=== PATIENT | female | born 2000 | race Caucasian/White ===

== ENCOUNTER 2023-06-02 09:45 | Emergency (ER) | payer BC, SELFPAY ==
--- NOTE | ~2023-06-02 | XR_ITS ---
EXAMINATION: XR LEFT ANKLE XR SACRUM/COCCYX CLINICAL INFORMATION: Pain following injury. COMPARISON: None. TECHNIQUE: AP, lateral, and mortise views of the left ankle were obtained. AP and lateral views of the sacrum and coccyx were obtained. FINDINGS: Left ankle: Alignment is anatomic. Focal cortical disruption at the tip of the lateral malleolus. Ankle mortise is maintained. The talar dome is intact. Lateral ankle soft tissue swelling. Moderate ankle joint effusion. Sacrum/coccyx: Alignment is anatomic. Sacroiliac joints and pubic symphysis are intact. The sacrum is partially obscured by overlying bowel contents. Hip joints appear symmetric. No displaced fracture or dislocation. XR/XR sacrum coccyx min 2V IMPRESSION: Possible nondisplaced fracture of the lateral malleolus.
--- NOTE | ~2023-06-02 | CT_ITS ---
EXAMINATION: CT HEAD W/O IV CONTRAST CT CERVICAL SPINE W/O IV CONTRAST CLINICAL INFORMATION: History of fall, head strike. COMPARISON: None TECHNIQUE: Head - Contiguous axial imaging of the head was performed from the skull base to the vertex without the administration of intravenous contrast, and axial images are reconstructed at 2 mm and 5 mm slice thickness. Cervical spine - A volumetric, helical CT acquisition of the cervical spine was obtained without contrast; in addition to the standard set of axial images, multiplanar reformatted images were provided in the coronal and sagittal imaging planes. This CT examination was performed using dose optimization techniques as appropriate, variously including the following: *Automated exposure control *Adjustment of mA and/or kV according to patient size (this includes techniques or standardized protocols for targeted exams where dose is matched to indication/reason for exam; i.e. extremities or head) *Use of iterative reconstruction technique DLP: 845 mGy-cm (total) FINDINGS: HEAD: No acute intracranial findings. Calhoun to white matter differentiation is preserved. No evidence of intracranial hemorrhage, major vascular territory infarction, focal mass effect or midline shift. The ventricles have normal size and configuration. No hydrocephalus or extra-axial fluid collections. The calvarium is intact. The paranasal sinuses are well aerated. Minimal mucus is seen at the floor of the left maxillary sinus. The mastoid air cells and middle ear cavities are clear. The temporomandibular joints are intact. The orbits and globes are unremarkable. CERVICAL SPINE: The cervical spine has normal curvature. The craniocervical junction is normal. The occipital condyles, dens and atlantodental articulation are intact. The vertebral body heights and alignment are maintained. No fractures in the anterior or posterior elements. No prevertebral soft tissue edema. The disc spaces are preserved. The facet joints and uncovertebral joints are unremarkable. No stenosis of the central spinal canal or neural foramina. No hematoma in the visualized neck. Thyroid gland is normal. The examined lung apices are clear. CT/CT cervical spine wo IV con IMPRESSION: * No acute intracranial pathology. * No fracture or malalignment in the cervical spine.
--- NOTE | ~2023-06-02 | XR_ITS ---
EXAMINATION: XR LEFT ANKLE XR SACRUM/COCCYX CLINICAL INFORMATION: Pain following injury. COMPARISON: None. TECHNIQUE: AP, lateral, and mortise views of the left ankle were obtained. AP and lateral views of the sacrum and coccyx were obtained. FINDINGS: Left ankle: Alignment is anatomic. Focal cortical disruption at the tip of the lateral malleolus. Ankle mortise is maintained. The talar dome is intact. Lateral ankle soft tissue swelling. Moderate ankle joint effusion. Sacrum/coccyx: Alignment is anatomic. Sacroiliac joints and pubic symphysis are intact. The sacrum is partially obscured by overlying bowel contents. Hip joints appear symmetric. No displaced fracture or dislocation. XR/XR ankle LT min 3V IMPRESSION: Possible nondisplaced fracture of the lateral malleolus.
--- NOTE | 2023-06-02 09:51 | ED.GENADULT ---
HPI - General Adult General Chief complaint: Fall Stated complaint: FALL FROM HORSE,+COLLAR Time Seen by Provider: 06/02/23 09:50 Source: patient and EMS Mode of arrival: EMS Limitations: no limitations History of Present Illness HPI narrative: Patient is a 22 year old assigned female at with no reported medical history presenting to the emergency department today with left ankle and tailbone pain. Patient states that she was riding a horse when she was thrown forward off of it. Patient states that her left ankle and tail bone hurt. Patient denies any loss of consciousness with the incident. Patient denies any dizziness, lightheadedness, abdominal pain, nausea, vomiting, fever, chills, blurry vision, double vision, loss of vision, chest pain, difficulty breathing, shortness of breath, back pain, night sweats, pain with urination, increased urinary frequency, increased urinary urgency, blood in her urine or stool, syncope or a near syncopal episode, bowel incontinence, bladder incontinence, bowel retention, bladder retention, or any other complaints at this time. Onset (ago): minute(s) Location: left and lower extremity Severity: mild Severity scale (1-10): 3 Relieving factors: none Exacerbating factors: none Associated symptoms: denies other symptoms Treatments prior to arrival: none Related Data Allergies Allergy/AdvReac Type Severity Reaction Status Date / Time No Known Allergies Allergy Verified 06/02/23 09:51 Review of Systems Constitutional: Constitutional: Reports no additional constitutional complaints, Denies chills, Denies fever(s) and Denies night sweats Eyes: Eyes: Reports no additional eye complaints, Denies blurry vision, Denies change in vision, Denies diplopia, Denies eye discharge, Denies loss of vision and Denies eye pain ENT: Denies dizziness Cardiovascular: Cardiovascular: Reports no additional cardiovascular complaints, Denies chest pain, Denies lightheadedness, Denies Loss of Consciousness and Denies dyspnea Respiratory: Respiratory: Reports no additional respiratory complaints and Denies dyspnea Gastrointestinal: Gastrointestinal: Reports no additional gastrointestinal complaints, Denies abdominal pain, Denies melena, Denies hematochezia, Denies change in bowel habits and Denies change in stool character Genitourinary: Genitourinary: Denies hematuria, Denies urinary frequency, Denies dysuria, Denies urinary incontinence, Denies urinary hesitancy and Denies urinary urgency Musculoskeletal: Musculoskeletal: Reports no additional musculoskeletal complaints, Reports back pain, Denies numbness and Denies tingling Comments: left ankle pain Neurologic: Denies dizziness, Denies loss of vision, Denies numbness and Denies tingling Psychiatric: Psychiatric: Reports no additional psychiatric complaints Endocrine: Endocrine: Reports no additional endocrine complaints Hematologic/Lymphatic: Hematologic/Lymphatic: Reports no additional hematologic/lymphatic complaints Allergic/Immunologic: Allergic/Immunologic: Reports no additional allergic/immunologic complaints [facility] Past Medical History Attestation statement: The following information was validated with the patient. Source: old records reviewed and nursing notes reviewed Social History Social History Smoked in Last 30 Days: No Use of substances other than those prescribed or required for medical reasons: No Advance Directives: No Advance Directives Information Provided: No Physical Exam ED Vital Signs: Vital Signs - 24 hr 06/02/23 09:53 06/02/23 10:00 06/02/23 13:52 Temperature 97.8 F 97.8 F 98.6 F Pulse Rate 82 78 78 Respiratory Rate 19 19 18 Blood Pressure 112/70 112/70 116/60 Pulse Oximetry 99 99 98 Oxygen Delivery Method Room Air Room Air Room Air BMI result Body Mass Index 20.8 Const General: cooperative, no acute distress, alert and awake Nutritional Appearance: well nourished Orientation/consciousness: patient oriented x3 Limitations: no limitations HENMT Head: Yes normal to inspection and Yes atraumatic Ears: hearing grossly normal bilaterally and external ears normal General nose exam: Normal external nose present, no nasal discharge noted and no epistaxis Face and sinus: Yes normal facial exam, No abrasion and No laceration Mouth: Normal oral and palatal mucosa present, no drooling and no muffled voice Eyes General: appearance normal, both eyes and all related structures Periorbital: periorbital findings normal Eyelids: Yes eyelids normal Conjunctivae: conjunctivae normal Pupils: Equal, round and reactive pupils present EOM: EOMs intact bilaterally Neck Neck: Yes normal visual inspection, Yes full ROM and Yes no lymphadenopathy Chest Chest palpation & inspection: normal inspection of the chest Resp Effort & Inspection: normal respiratory effort and able to speak in complete sentences GI Inspection: Yes normal to inspection Neuro General: patient oriented x3 and moves all extremities Cranial nerves: Yes Equal, round and reactive pupils present Cognition (Neuro): normal cognition Motor exam (neuro): 5/5 motor strength present throughout Sensory Exam: Normal double simultaneous stimulation for sensation Coordination: [id number] test normal Extrem General: Yes normal to inspection, Yes full ROM and Yes capillary refill normal Psych Appearance: grossly normal Mental Status: mental status grossly normal Affect: normal affect Attitude: cooperative Thought process: Normal thought process present Thought content: Normal thought content present Insight: Good insight present (Psych) Procedures Orthopedic Splinting/Casting Injury #1: Side: left Lower Extremity Injury Location: ankle Lower Extremity Immobilizer: boot orthosis Other Orthopedic Equipment: crutches Medical Decision Making Medical Decision Making MDM Narrative: Patient is a 22 year old assigned female at with no reported medical history presenting to the emergency department today with left ankle pain after falling off a horse. Patient's physical exam was unremarkable. Patient's CT head and c-spine were unremarkable. Patient's left ankle x-ray showed an acute fracture. Patient's tailbone x-ray was negative. I showed no acute process. I explained my physical exam findings as well as all test results to the patient. I answered all questions asked by the patient. Patient's left ankle was placed in a walking boot without incident. Patient's PMS was intact prior to and after boot placement. Patient was given crutches and crutch instructions. I stressed the importance of the patient taking her medication as prescribed. I stressed the importance of the patient following up with her primary care provider and an orthopedic provider. I stressed the importance of the patient returning to the emergency department immediately if her symptoms were to worsen or if she were to develop any dizziness, shortness of breath, difficulty breathing, chest pain, blurry vision, loss of vision, nausea, vomiting, abdominal pain, fever, chills, back pain, or any other complaints. Patient verbalized agreement and understanding with this treatment plan and discharge. Differential Diagnosis Differential Diagnoses: The differential diagnosis associated with the presentation includes Fall from horse Left ankle fracture Tailbone contusion Admission/Observation Consideration of admission/observation: Escalation of care including admission/observation considered Patient would have been admitted to the hospital had her work up had any findings where hospital admission was appropriate and her clinical presentation warranted hospital admission. Independent Interpretation I performed an independent interpretation of an: Plain X-Ray and CT Scan Interpretation: My interpretation is in agreement with the radiologist's impression of these imaging studies. EXAMINATION: CT HEAD W/O IV CONTRAST CT CERVICAL SPINE W/O IV CONTRAST CLINICAL INFORMATION: History of fall, head strike. COMPARISON: None TECHNIQUE: Head - Contiguous axial imaging of the head was performed from the skull base to the vertex without the administration of intravenous contrast, and axial images are reconstructed at 2 mm and 5 mm slice thickness. Cervical spine - A volumetric, helical CT acquisition of the cervical spine was obtained without contrast; in addition to the standard set of axial images, multiplanar reformatted images were provided in the coronal and sagittal imaging planes. This CT examination was performed using dose optimization techniques as appropriate, variously including the following: *Automated exposure control *Adjustment of mA and/or kV according to patient size (this includes techniques or standardized protocols for targeted exams where dose is matched to indication/reason for exam; i.e. extremities or head) *Use of iterative reconstruction technique DLP: 845 mGy-cm (total) FINDINGS: HEAD: No acute intracranial findings. Calhoun to white matter differentiation is preserved. No evidence of intracranial hemorrhage, major vascular territory infarction, focal mass effect or midline shift. The ventricles have normal size and configuration. No hydrocephalus or extra-axial fluid collections. The calvarium is intact. The paranasal sinuses are well aerated. Minimal mucus is seen at the floor of the left maxillary sinus. The mastoid air cells and middle ear cavities are clear. The temporomandibular joints are intact. The orbits and globes are unremarkable. CERVICAL SPINE: The cervical spine has normal curvature. The craniocervical junction is normal. The occipital condyles, dens and atlantodental articulation are intact. The vertebral body heights and alignment are maintained. No fractures in the anterior or posterior elements. No prevertebral soft tissue edema. The disc spaces are preserved. The facet joints and uncovertebral joints are unremarkable. No stenosis of the central spinal canal or neural foramina. No hematoma in the visualized neck. Thyroid gland is normal. The examined lung apices are clear. CT/CT cervical spine wo IV con IMPRESSION: * No acute intracranial pathology. * No fracture or malalignment in the cervical spine. Dictated By: David Valdez MD Signed By: Electronically signed by David Valdez MD 06/02/23 1147 EXAMINATION: XR LEFT ANKLE XR SACRUM/COCCYX CLINICAL INFORMATION: Pain following injury. COMPARISON: None. TECHNIQUE: AP, lateral, and mortise views of the left ankle were obtained. AP and lateral views of the sacrum and coccyx were obtained. FINDINGS: Left ankle: Alignment is anatomic. Focal cortical disruption at the tip of the lateral malleolus. Ankle mortise is maintained. The talar dome is intact. Lateral ankle soft tissue swelling. Moderate ankle joint effusion. Sacrum/coccyx: Alignment is anatomic. Sacroiliac joints and pubic symphysis are intact. The sacrum is partially obscured by overlying bowel contents. Hip joints appear symmetric. No displaced fracture or dislocation. XR/XR ankle LT min 3V IMPRESSION: Possible nondisplaced fracture of the lateral malleolus. Dictated By: Renate Draper MD Signed By: Electronically signed by Renate Draper MD 06/02/23 1311 Radiology Impression Discussion of test interpretation with radiology: I have reviewed the radiologist's reading. Independent Historian Clinical information obtained from an independent historian. History obtained from or confirmed by: EMS (EMS provided additional history and confirmed the history provided by the patient.) Discharge Plan Discharge Clinical Impression: Ankle fracture Patient Disposition: Home, Self-Care Instructions: Ankle Fracture (DC) Additional Instructions: Follow up with your primary care provider and an orthopedic provider. Return to the emergency department immediately if your symptoms worsen or if you develop any dizziness, shortness of breath, difficulty breathing, chest pain, blurry vision, loss of vision, nausea, vomiting, abdominal pain, fever, chills, back pain, or any other complaints. Referrals: [facility] [place] [facility] [Provider Group] (Call to establish and follow up with a primary care provider. If you already have a primary care provider, please follow up with them.) [facility] [place] [facility]] (Call to establish and follow up with a primary care provider. If you already have a primary care provider, please follow up with them.) [facility] [place] [facility] [Provider Group] (Call to establish and follow up with a primary care provider. If you already have a primary care provider, please follow up with them.) [facility] [place] [facility] [Provider Group] (Call to establish and follow up with an orthopedic provider.) Interventions: ED Discharge Assessment Last Done: 06/02/23 14:09 Discharge Date/Time: 06/02/23 14:12 Print Language: Kinyarwanda
[2023-06-02 09:53] VITALS: BP 112/70; BP 128/82; PULSE 82; PULSE 88; RESP 19; TEMP 36.6; O2SAT 98; O2SAT 99; BMI 20.8
[2023-06-02 10:00] VITALS: BP 112/70; PULSE 78; RESP 19; TEMP 36.6; O2SAT 99
--- NOTE | 2023-06-02 10:02 | PC.NURSE ---
pt presents to ED via EMS for a fall off of her horse at [facility], thrown off , witnessed by bystanders who say she fell onto her head and neck, no LOC. pt is alert and oriented, breathing even and unlabored, skin warm and dry. pt denies head or neck pain, no LOC. pt denies dizziness, blurred vision or weakness. pt reports left ankle pain described as sharp and tailbone pain described as dull. Overall pain 5/10. Pt is in c-collar placed by EMS. pt has equal strength, CSMx4 intact. No obvious deformities to left ankle, no bruising. No obvious bleeding, swelling or bruising to head or face.
--- OUTSIDE RECORDS SUMMARY | 2023-06-02 10:41 | XMS_ITS | Continuity of Care Document ---
Author Name Unknown Organization [facility] Address [address] [place] [address]- Care Team Providers Care Tag Clerk Name Role Phone UNKNOWN, DOCTOR Primary Care Physician Unavailab le Encounter [facility] [id number] Date(s): 11/03/20 - 11/05/20 [facility] [address] [place] [address]- [facility] Encounter Diagnosis Other specified disorders of nose and nasal sinuses(Final) - 11/03/20 Epistaxis(Final) - 11/03/20 Localized swelling, mass and lump, head(Final) - 11/03/20 Other specified disorders of nose and nasal sinuses(Final) - 11/03/20 Epistaxis(Final) - 11/03/20 Hemangioma of other sites(Final) - 11/03/20 Contact with and (suspected) exposure to COVID19(Final) - 11/03/20 Discharge Disposition: HR Attending Physician: HARVEY GORMAN MD Admitting Physician: HARVEY GORMAN MD Allergies, Adverse Reactions, Alerts No Known Allergies Functional Status 11/03/20 Ambulates Independently Medications No Known Medications Mental Status 11/03/20 Level of Consciousness Awake, Alert Orientation Oriented X3 11/03/20 Affect Appropriate Problem List Condition Effective Dates Status Health Status Inform ant Difficulty breathing(Confirmed) Active Mass(Confirmed) 1 Active 1nasal Procedures Procedure Date Related Diagnosis Body Site Status EXCISION LESION SCALP/FACE 1 11/03/20 Completed Toe 2 2013 Completed Hand 3 2003 Completed 1auto-populated from documented surgical case 2lt great toe ingrown toenail 3rt severed tendon Results Laboratory List Name Date U Qual ED ( Qual Urin e) 11/03/20 [id number] ([place]) 10/30/20 Most recent to oldest [Reference Range]: 1 [id number] ([place]) [Negative] Negativ e (10/30/20 1:27 PM) Urine Interp Negative NOTE: This is a screening test only and may give rise to false negative results at levels below 20 mIU/ML. *Unknown* (11/03/20 8:30 AM) Urine Screen Negative (11/03/20 8:30 AM) Vital Signs Most recent to oldest [Reference Range]: 1 2 3 Temperature Oral [96.4-99.1 DegF] 97.9 DegF (11/03/20 12:22 PM) 98.0 DegF (11/03/20 8:25 AM) Temperature Axillary [95.4-98.1 DegF] 97.8 DegF (11/03/20 11:01 AM) Heart Rate [60-100 bpm] 56 bpm *L* (11/03/20 12:22 PM) 69 bpm (11/03/20 12:00 PM) 78 bpm (11/03/20 11:45 AM) HR/Rhythm Normal sinus rhythm (11/03/20 12:00 PM) Normal sinus rhythm (11/03/20 11:45 AM) Normal sinus rhythm (11/03/20 11:30 AM) Resp Rate Spontaneous [14-20 br/min] 18 br/min (11/03/20 12:22 PM) 18 br/min (11/03/20 12:00 PM) 15 br/min (11/03/20 11:45 AM) Blood Pressure [90-140/60-90 mmHg] 95/62mmHg (11/03/20 12:22 PM) 107/71mmHg (11/03/20 12:00 PM) 109/74mmHg (11/03/20 11:45 AM) NIBP Site Right arm (11/03/20 12:22 PM) Right arm (11/03/20 12:00 PM) Right arm (11/03/20 11:45 AM) Body Mass Index 17.9211 kg/m2 (11/03/20 8:22 AM) 17.4681 kg/m2 (10/31/20 3:43 PM) BMI Percentile 5.71 1 (11/03/20 8:22 AM) 3.22 2 (10/31/20 3:43 PM) 1Result Comment: ^~:!Percentile Source -CDC 2Result Comment: ^~:!Percentile Source -[facility] Social History Social History Type Response Smoking Status Never (less than 100 in lifetime); Smokeless tobacco use: new entered on: 10/31/20 Sex Hospital Discharge Instructions Patient Education 11/03/2020 12:19:00 Incision Care, Adult Incision Care, Adult An incision is a surgical cut that is made through your skin. Most incisions are closed after surgery. Your incision may be closed with stitches (sutures), meg, skin glue, or adhesive strips. Youmay need to return to your health care provider to have sutures or meg removed. This may occur several days to several weeks after your surgery. The incision needs to be cared for properly to prevent infection. How to care for your incision Incision care ??? Follow instructions from your health care provider about how to take care of your incision. Make sure you: ??? Wash your hands with soap and water before you change the bandage (dressing). If soap and waterare not available, use hand diagnostic imaging manager. ??? Change your dressing as told by your health care provider. ??? Leave sutures, skin glue, or adhesive strips in place. These skin closures may need to stay in place for 2 weeks or longer. If adhesive strip edges start to loosen and curl up, you may trim the loose edges. Do not remove adhesive strips completely unless your health care provider tells you to do that. ??? Check your incision area every day for signs of infection. Check for: ??? More redness, swelling, or pain. ??? More fluid or blood. ??? Warmth. ??? Pus or a bad smell. ??? Ask your health care provider how to clean the incision. This may include: ??? Using mild soap and water. ??? Using a clean towel to pat the incision dry after cleaning it. ??? Applying a cream or ointment. Do this only as told by your health care provider. ??? Covering the incision with a clean dressing. ??? Ask your health care provider when you can leave the incision uncovered. ??? Do not take baths, swim, or use a hot tub until your health care provider approves. Ask your health care provider if you can take showers. You may only be allowed to take sponge baths for bathing. Medicines ??? If you were prescribed an antibiotic medicine, cream, or ointment, take or apply the antibioticas told by your health care provider. Do not stop taking or applying the antibiotic even if your condition improves. ??? Take nqrx-wym-dawqoel and prescription medicines only as told by your health care provider. General instructions ??? Limit movement around your incision to improve healing. ??? Avoid straining, lifting, or exercise for the first month, or for as long as told by your health care provider. ??? Follow instructions from your health care provider about returning to your normal activities. ??? Ask your health care provider what activities are safe. ??? Protect your incision from the sun when you are outside for the first 6 months, or for as long as told by your health care provider. Apply sunscreen around the scar or cover it up. ??? Keep all follow-up visits as told by your health care provider. This is important. Contact a health care provider if: ??? Your have more redness, swelling, or pain around the incision. ??? You have more fluid or blood coming from the incision. ??? Your incision feels warm to the touch. ??? You have pus or a bad smell coming from the incision. ??? You have a fever or shaking chills. ??? You are nauseous or you vomit. ??? You are dizzy. ??? Your sutures or meg come undone. Get help right away if: ??? You have a red streak coming from your incision. ??? Your incision bleeds through the dressing and the bleeding does not stop with gentle pressure. ??? The edges of your incision open up and separate. ??? You have severe pain. ??? You have a rash. ??? You are confused. ??? You faint. ??? You have trouble breathing and a fast heartbeat. This information is not intended to replace advice given to you by your health care provider. Make sure you discuss any questions you have with your health care provider. Document Released: 10/22/2005 Document Revised: 04/06/2019 Document Reviewed: 10/20/2016 Elsevier Patient Education ?? 2020 [email or web address] 11/03/2020 12:18:29 General Anesthesia, Adult, Care After General Anesthesia, Adult, Care After This sheet gives you information about how to care for yourself after your procedure. Your health care provider may also give you more specific instructions. If you have problems or questions, contact your health care provider. What can I expect after the procedure? After the procedure, the following side effects are common: ??? Pain or discomfort at the IV site. ??? Nausea. ??? Vomiting. ??? Sore throat. ??? Trouble concentrating. ??? Feeling cold or chills. ??? Weak or tired. ??? Sleepiness and fatigue. ??? Soreness and body aches. These side effects can affect parts of the body that were not involvedin surgery. Follow these instructions at home: For at least 24 hours after the procedure: ??? Have a responsible adult stay with you. It is important to have someone help care for you untilyou are awake and alert. ??? Rest as needed. ??? Do not: ??? Participate in activities in which you could fall or become injured. ??? Drive. ??? Use heavy machinery. ??? Drink alcohol. ??? Take sleeping pills or medicines that cause drowsiness. ??? Make important decisions or sign legal documents. ??? Take care of children on your own. Eating and drinking ??? Follow any instructions from your health care provider about eating or drinking restrictions. ??? When you feel hungry, start by eating small amounts of foods that are soft and easy to digest (bland), such as toast. Gradually return to your regular diet. ??? Drink enough fluid to keep your urine pale yellow. ??? If you vomit, rehydrate by drinking water, juice, or clear broth. General instructions ??? If you have sleep apnea, surgery and certain medicines can increase your risk for breathing problems. Follow instructions from your health care provider about wearing your sleep device: ??? Anytime you are sleeping, including during daytime naps. ??? While taking prescription pain medicines, sleeping medicines, or medicines that make you drowsy. ??? Return to your normal activities as told by your health care provider. Ask your health care provider what activities are safe for you. ??? Take uoor-lek-amgnldm and prescription medicines only as told by your health care provider. ??? If you smoke, do not smoke without supervision. ??? Keep all follow-up visits as told by your health care provider. This is important. Contact a health care provider if: ??? You have nausea or vomiting that does not get better with medicine. ??? You cannot eat or drink without vomiting. ??? You have pain that does not get better with medicine. ??? You are unable to pass urine. ??? You develop a skin rash. ??? You have a fever. ??? You have redness around your IV site that gets worse. Get help right away if: ??? You have difficulty breathing. ??? You have chest pain. ??? You have blood in your urine or stool, or you vomit blood. Summary ??? After the procedure, it is common to have a sore throat or nausea. It is also common to feel tired. ??? Have a responsible adult stay with you for the first 24 hours after general anesthesia. It is important to have someone help care for you until you are awake and alert. ??? When you feel hungry, start by eating small amounts of foods that are soft and easy to digest (bland), such as toast. Gradually return to your regular diet. ??? Drink enough fluid to keep your urine pale yellow. ??? Return to your normal activities as told by your health care provider. Ask your health care provider what activities are safe for you. This information is not intended to replace advice given to you by your health care provider. Make sure you discuss any questions you have with your health care provider. Document Released: 2001 Document Revised: 04/07/2018 Document Reviewed: 11/18/2017 [email or web address] Patient Education ?? 2020 [employer]. 11/03/2020 12:18:10 Surgical Site Infections FAQs(CUSTOM) Surgical Site Infections FAQs What is a Surgical Site Infection (SSI)? A surgical site infection is an infection that occurs after surgery in the part of the body where the surgery took place. Most patients who have surgery do not develop an infection. However, infections develop in about 1 to 3 out of every 100 patients who have surgery. Some of the common symptoms of a surgical site infection are: ??? Redness and pain around the area where you had surgery ??? Drainage of cloudy fluid from your surgical wound ??? Fever Can SSIs be treated? Yes. Most surgical site infections can be treated with antibiotics. The antibiotic given to youdepends on the bacteria (germs) causing the infections. Sometimes patients with SSIs also need another surgery to treat the infection. What are some of the things that hospitals are doing to prevent SSIs? To prevent SSIs, doctors, nurses, and other healthcare providers: o Clean their hands and arms up to their elbows with an antiseptic agent just before the surgery. o Clean their hands with soap and water or an alcohol-based hand rub before and after caring for each patient. o May remove some of your hair immediately before your surgery using electric clippers if the hair is in the same area where the procedure will occur. They should not shave you with a razor. o Wear special hair covers, masks, gowns, and gloves during surgery to keep the surgery area clean. o Give you antibiotics before your surgery starts. In most cases, you should get antibiotics minutes before the surgery starts and the antibiotics should be stopped within 24 hours after surgery. o Clean the skin at the site of your surgery with a special soap that kills germs. What can I do to help prevent SSIs? Before your surgery: o Tell your doctor about other medical problems you may have. Health problems such as allergies, diabetes, and obesity could affect your surgery and your treatment. o Quit smoking. Patients who smoke get more infections. Talk to your doctor about how you can quit before your surgery. o Do not shave near where you will have surgery. Shaving with a razor can irritate your skin and make it easier to develop an infection. ??? At the time of your surgery: o Speak up if someone tries to shave you with a razor before surgery. Ask why you need to be shavedand talk with your surgeon if you have any concerns. o Ask if you will get antibiotics before surgery. ??? After your surgery: o Make sure that your healthcare providers clean their hands before examining you, either with soapand water or an alcohol-based hand rub. o If you do not see your providers clean their hands, please ask them to do so. o Family and friends who visit you should not touch the surgical wound or dressings. o Family and friends should clean their hands with soap and water or an alcohol- based hand rub before and after visiting you. If you do not see them clean their hands, ask them to clean their hands. What do I need to do when I go home from the hospital? Before you go home, your doctor or nurse should explain everything you need to know about taking care of your wound. Make sure you understand how to care for your wound before you leave the hospital. ??? Always clean your hands before and after caring for your wound. ??? Before you go home, make sure you know who to contact if you have questions or problems after you get home. ??? If you have any symptoms of an infection, such as redness and pain at the surgery site, drainage, or fever, call your doctor immediately. If you have additional questions, please ask your doctor or nurse. Developed and co-sponsored by The Society for Healthcare Epidemiology of [place] (ROOT); InfectiousDiseases Society of [place] (IDSA); [facility]; Association for Professionals inInfection Control and Epidemiology (APIC); Centers for Disease Control and Prevention (CDC); and The Joint Commission. Document Released: 04/09/2014 Document Reviewed: 04/09/2014 ExitCare?? Patient Information ??2015 [employer]. This information is not intended to replace advice given to you by your health care provider. Make sure you discuss any questions you have with your health care provider.
--- OUTSIDE RECORDS SUMMARY | 2023-06-02 10:41 | XMS_ITS | Continuity of Care Document ---
Author Name Unknown Organization [facility] Address [address] [place] [address]- Care Team Providers Care Coordinator Integrated Marketing Name Role Phone UNKNOWN, DOCTOR Primary Care Physician Unavailab le Encounter [facility] [place] [id number] Date(s): 11/03/20 - 11/05/20 [facility] [address] [place], [place] [address] Discharge Disposition: HR Attending Physician: HARVEY GORMAN [...] Qual ED ( Qual Urin e) 11/03/20 [id number] ([place]) 10/30/20 Most recent to oldest [Reference Range]: 1 [id number] ([place]) [Negative] Negativ e (10/30/20 1:27 PM) Urine [...] ^~:!Percentile Source -CDC 2Result Comment: ^~:!Percentile Source -CDC Social History Social History Type Response Smoking [...] soap and waterare not available, use hand taper operator. ??? Change your dressing as told by [...] even if your condition improves. ??? Take dham-fwv-exmssrs and prescription medicines only as told by [...] 10/22/2005 Document Revised: 04/06/2019 Document Reviewed: 10/20/2016 [email or web address] Patient Education ?? 2020 [email or web address] 11/03/2020 12:18:29 General Anesthesia, Adult, Care [...] activities are safe for you. ??? Take zuoo-uxo-wsxwdrw and prescription medicines only as told by [...] 2001 Document Revised: 04/07/2018 Document Reviewed: 11/18/2017 [email or web address] Patient Education ?? 2020 [employer]. 11/03/2020 12:18:10 Surgical Site Infections FAQs(CUSTOM) Surgical [...] In most cases, you should get antibiotics [id number] minutes before the surgery starts and the [...] [place] (ROOT); InfectiousDiseases Society of [place] (IDSA); [facility]; Association for Professionals inInfection Control and Epidemiology (APIC); Centers for Disease Control and Prevention (CDC); and The Joint Commission. Document Released: 04/09/2014 Document Reviewed: 04/09/2014 ExitCare?? Patient Information ??2015 [employer]. This information is not intended to replace advice given to you by your health care provider. Make sure you discuss any questions you have with your health care provider.
--- NOTE | 2023-06-02 12:47 | PC.NURSE ---
Provider at bedside discussing plan
[2023-06-02 13:52] VITALS: BP 116/60; PULSE 78; RESP 18; TEMP 37; O2SAT 98
== END 2023-06-02 14:12 | disposition home or self-care (01) ==
PROVIDERS: Emergency Provider Emergency Medicine
DX: S82.892A Other fracture of left lower leg, initial encounter for closed fracture (principal); V80.010A Animal-rider injured by fall from or being thrown from horse in noncollision accident, initial encounter; Y93.52 Activity, horseback riding; Y92.9 Unspecified place or not applicable; Y99.9 Unspecified external cause status
CPT/HCPCS: 70450; 72125; 72220; 73610; 99284

== ENCOUNTER 2023-06-10 11:57 | Outpatient (AMB) | payer OTHER, SELFPAY ==
--- NOTE | 2023-06-10 12:04 | A.OFFVIS_ITS ---
Intake Intake Visit Reasons: FC- LT Ankle fracture Intake Note: Melida clarke 23 year old female presents today for an ER follow up of left ankle fx, DOI 06/02/23. Patient reports she fell off a horse, patient reports she is unsure on how she landed. She presented to [facility] same day where xrays were obtained and placed in a walking boot. Currently is having some dull pain in the heal. Denies numbness and tingling. Allergies No Known Allergies Allergy (Verified 06/10/23 12:07) HPI FC- LT Ankle fracture HPI Details 23-year-old female who presents in the [facility] today, as a new patient, for an evaluation of left ankle pain. The patient presented to the ED on 06/02/2023 status post being thrown forward off a horse. X-rays were obtained. The patient was placed in a boot orthosis and given crutches. While in the office today the patient reports she is not sure how she landed. She reports a dull pain in the heel. She denies numbness and tingling. [facility] Social History (Updated 06/10/23 @ 12:09 by Gulshan Metzger) Alcohol intake: never Patient Tobacco Use Status: Never used Tobacco Current occupational status: employed Current occupation: JOSE Review of Systems Const All systems reviewed & are unremarkable except as noted in HPI and below Physical Exam Const General: cooperative and no acute distress Orientation/consciousness: patient oriented x3 Resp Effort & Inspection: normal respiratory effort and able to speak in complete sentences Cardio Peripheral pulses: Peripheral pulses 2+ throughout Skin General skin exam: no rashes or lesions noted Neuro General: patient oriented x3 Extrem Other: Left ankle: Lateral sided mild edema. Slight tenderness to palpation at the distal fibula. Able to perform dorsiflex, plantarflexion, pronation, and supination with mild discomfort. Sensation intact. Pedal pulse intact. Office Procedures Fracture Care Fracture Billing Code: Fracture Billing Code Assessment & Plan Assessment & Plan (1) Fracture of left ankle, lateral malleolus: Code(s): S82.62XA - Displaced fracture of lateral malleolus of left fibula, initial encounter for closed fracture Qualifiers: Encounter type: initial encounter Fracture alignment: nondisplaced Fracture type: closed Qualified Code(s): S82.65XA - Nondisplaced fracture of lateral malleolus of left fibula, initial encounter for closed fracture Plan Ms. Call is a 23-year-old female who presents in the office today, as a new patient, for an evaluation of left ankle pain. The patient presented to the ED on 06/02/2023 status post being thrown forward off a horse. X-rays were obtained. The patient was placed in a boot orthosis and given crutches. While in the office today the patient reports she is not sure how she landed. She reports a dull pain in the heel. She denies numbness and tingling. The patient will be placed in a tall walking boot, off the shelf. We will defer physical therapy at this time due to her good ROM. She was encouraged to come out of the boot to work on gentle ROM. Exercises were demonstrate while in the office today. I highly recommend for the patient to not go horse riding until her ankle is heel, which we discussed is 6-8 weeks. She expressed that riding season is about to start this next weekend. Follow up will be in 4 weeks with repeat x-rays, or sooner if needed. X-rays of the left ankle, obtained on 06/02/2023, revealed: Possible nondisplaced fracture of the lateral malleolus. Patient Instructions: Scribed by Meredith Miller medical pathology teacher, for Yudi Reese PA-C on 06/10/2023 at 12:18 pm, EST. Coding Level of Care Code New Pt Level 4 (48262) Diagnoses Closed nondisplaced fracture of lateral malleolus of left fibula, initial encounter S82.65XA Encounter type: initial encounter Fracture alignment: nondisplaced Fracture type: closed CPT Codes Fracture Care - Fracture Billing Code: Fracture Billing Code ([id number])
== END 2023-06-10 12:33 | disposition home or self-care (01) ==
PROVIDERS: Visit Provider Physician Assistant
DX: S82.65XA Nondisplaced fracture of lateral malleolus of left fibula, initial encounter for closed fracture (principal)
CPT/HCPCS: 99203

== ENCOUNTER → 2023-06-10 11:57 | Outpatient (BNVA) | payer OTHER, SELFPAY | PROVIDERS: Visit Provider Physician Assistant ==

== ENCOUNTER 2023-07-05 13:48 | Outpatient (AMB) | payer OTHER, SELFPAY ==
--- NOTE | 2023-07-05 14:09 | MHC.OFFVIS ---
Intake Vital Signs 07/05/23 14:12 Height 5 ft 6 in Weight 129 lb BMI 20.8 Intake Visit Reasons: ov- LT Ankle fracture Intake Note: Melida is a 23 year old female who presents today for a follow up of left ankle lateral malleolus fx, DOI 06/02/23. Patient reports having some dull pain around her ankle. She states that she is feeling better since her last visit. Allergies No Known Allergies Allergy (Verified 07/05/23 14:16) HPI ov- LT Ankle fracture HPI Details 23-year-old female who presents in the office today for a follow up of a left ankle lateral malleolus fracture, which occurred on 06/02/2023 status post being thrown forward off a horse. I last saw the patient in the office on 06/10/2023 at which time she was placed in a tall walking boot and encouraged to work on gentle ROM at home. It was highly recommended for the patient on not go horse back riding until her ankle was healed. While in the office today the patient reports having some dull pain around her ankle. She states that she is feeling better since her last visit. [facility] Social History Alcohol intake: never Patient Tobacco Use Status: Never used Tobacco Current occupational status: employed Current occupation: JOSE Review of Systems Const All systems reviewed & are unremarkable except as noted in HPI and below Physical Exam Vital Signs: BMI result Body Mass Index 20.8 Const General: cooperative, healthy appearing and no acute distress Resp Effort & Inspection: normal respiratory effort and able to speak in complete sentences Cardio Rate: regular rate Peripheral pulses: Peripheral pulses 2+ throughout GI Palpation (GI): Soft to palpation Skin Lesions: no lesions Rashes: no rashes Extrem Other: Left ankle: Slight tenderness to palpation at the distal fibula. Stiffness with dorsiflex and plantarflex, pronation and supination. Sensation intact. Pedal pulse intact. Assessment & Plan Assessment & Plan (1) Fracture of left ankle, lateral malleolus: Code(s): S82.62XA - Displaced fracture of lateral malleolus of left fibula, initial encounter for closed fracture Qualifiers: Encounter type: initial encounter Fracture alignment: nondisplaced Fracture type: closed Qualified Code(s): S82.65XA - Nondisplaced fracture of lateral malleolus of left fibula, initial encounter for closed fracture Plan Ms. Call is a 23-year-old female who presents in the office today for a follow up of a left ankle lateral malleolus fracture, which occurred on 06/02/2023 status post being thrown forward off a horse. I last saw the patient in the office on 06/10/2023 at which time she was placed in a tall walking boot and encouraged to work on gentle ROM at home. It was highly recommended for the patient on not go horse back riding until her ankle was healed. While in the office today the patient reports having some dull pain around her ankle. She states that she is feeling better since her last visit. I discussed the role of formal physical therapy. However, the patient states she is a student at [employer] and does not have access to reliable transportation and there is not health and safety trainer that is available at her campus. I did discuss with her some range of motion exercises that she can do on her own, and if in two weeks she is having continuous stiffness, I want her to contact me. My business card was given to her and she educated that she would have to attend formal physical therapy at that time. She understands and accepts. She will also begin to wean out of the boot at this time. She was given a lace up ankle brace, off the shelf, to wear for ambulation and activities; she may also return back to horse back riding with the ankle brace on for the next 4 weeks minimum. Follow up will be in 4 weeks with repeat x-rays, or sooner if needed. X-rays of the left ankle which were obtained while in the office today and were reviewed by me, Yudi Reese PA-C, revealed a lateral malleolus fracture with routine healing. Orders: Orders XR ankle LT min 3V Today M25.579 - Pain in unspecified ankle and joints of unspecified foot Patient Instructions: Scribed by Merediht Miller medical technician assistant, for Yudi Reese PA-C on 07/05/2023 at 1:49 pm, EST. Coding Level of Care Code Est Pt Level 3 (59478) Diagnoses Closed nondisplaced fracture of lateral malleolus of left fibula, initial encounter S82.65XA Encounter type: initial encounter Fracture alignment: nondisplaced Fracture type: closed
[2023-07-05 14:12] VITALS: BMI 20.8
== END 2023-07-05 15:24 | disposition home or self-care (01) ==
PROVIDERS: Visit Provider Physician Assistant
DX: S82.65XA Nondisplaced fracture of lateral malleolus of left fibula, initial encounter for closed fracture (principal)
CPT/HCPCS: 99213

== ENCOUNTER 2023-07-05 13:48 | Outpatient (REF) | payer OTHER, SELFPAY ==
--- NOTE | ~2023-07-05 | XR_ITS ---
EXAMINATION: XR ANKLE, LEFT CLINICAL INFORMATION: Pain in unspecified ankle and joints of unspecified foot. COMPARISON: 06/02/2023. TECHNIQUE: AP, lateral, and mortise views of the left ankle. FINDINGS: Redemonstration of nondisplaced fracture of the lateral malleolus with evidence of some interval osseous bridging. Alignment is anatomic. Ankle mortise is maintained. Talar dome is preserved. XR/XR ankle LT min 3V IMPRESSION: Healing nondisplaced fracture of the lateral malleolus.
== END 2023-07-05 13:49 | disposition home or self-care (01) ==
LOC: HO.HOSX 13:48
PROVIDERS: Visit Provider Physician Assistant
DX: S82.65XA Nondisplaced fracture of lateral malleolus of left fibula, initial encounter for closed fracture (principal)
CPT/HCPCS: 73610

== ENCOUNTER 2023-07-07 09:23 | Outpatient (REF) | payer OTHER, SELFPAY | END 2023-07-07 09:24 | disposition home or self-care (01) | LOC: HO.HOSX 09:23 | PROVIDERS: Visit Provider Physician Assistant | DX: Z13.89 Encounter for screening for other disorder (principal) ==

== ENCOUNTER 2023-08-02 13:48 | Outpatient (AMB) | payer OTHER, SELFPAY ==
[2023-08-02 14:02] VITALS: BMI 20.8
--- NOTE | 2023-08-02 14:02 | A.OFFVIS_ITS ---
Intake Vital Signs 08/02/23 14:02 Height 5 ft 6 in Weight 129 lb BMI 20.8 Intake Visit Reasons: ov- LT Ankle fracture-w/xray Intake Note: Melida is a 23 year old female who presents today for a follow up of left ankle lateral malleolus fx, DOI 06/02/23. Patient report . Allergies No Known Allergies Allergy (Verified 08/02/23 14:03) HPI ov- LT Ankle fracture-w/xray HPI Details 23-year-old female who presents in the [facility] today for a follow up of a left ankle lateral malleolus fracture, which occurred on 06/02/2023 status post being thrown forward off a horse. I last saw the patient in the office on 07/05/2023 when we discussed ROM exercises to work on. She was to begin to wean out of the boot and was given a lace-up ankle brace to wear with ambulation and activities. She was also released to return to horseback riding with the use of the brace for 4 additional weeks with a possibility of extension of time. Patient is a student at [employer]. [facility] Social History Alcohol intake: never Patient Tobacco Use Status: Never used Tobacco Current occupational status: employed Current occupation: JOSE Review of Systems Const All systems reviewed & are unremarkable except as noted in HPI and below Physical Exam Vital Signs: BMI result Body Mass Index 20.8 Const General: cooperative, healthy appearing and no acute distress Resp Effort & Inspection: normal respiratory effort and able to speak in complete sentences Cardio Rate: regular rate Peripheral pulses: Peripheral pulses 2+ throughout GI Palpation (GI): Soft to palpation Skin Lesions: no lesions Rashes: no rashes Extrem Other: Left ankle: Slight tenderness to palpation at the distal fibula. Full dorsiflex and plantarflex, pronation and supination. Sensation intact. Pedal pulse intact. Assessment & Plan Assessment & Plan (1) Fracture of left ankle, lateral malleolus: Code(s): S82.62XA - Displaced fracture of lateral malleolus of left fibula, initial encounter for closed fracture Qualifiers: Encounter type: initial encounter Fracture alignment: nondisplaced Fracture type: closed Qualified Code(s): S82.65XA - Nondisplaced fracture of lateral malleolus of left fibula, initial encounter for closed fracture Plan Ms. Call is a 23-year-old female who presents in the office today for a follow up of a left ankle lateral malleolus fracture, which occurred on status post being thrown forward off a horse. I last saw the patient in the office on 07/05/2023 when we discussed ROM exercises to work on. She was to begin to wean out of the boot and was given a lace-up ankle brace to wear with ambulation and activities. She was also released to return to horseback riding with the use of the brace for 4 additional weeks with a possibility of extension of time. Patient is a student at [employer]. I educated the patient that should she have increased pain or even gradual increase of pain that she should modify her activities. I am happy to see her at any time if she has any questions in the future. Follow up will be PRN, or sooner if needed. X-rays of the left ankle which were obtained while in the office today and were reviewed by me, Yudi Reese PA-C, revealed routine healing of a left lateral malleolus fracture. Orders: Orders XR ankle LT min 3V Today M25.579 - Pain in unspecified ankle and joints of unspecified foot Patient Instructions: Scribed by Meredith Miller outside medical sales representative, for Yudi Reese PA-C on 08/02/2023 at 1:50 pm, EST. Coding Level of Care Code Global (55743) Diagnoses Closed nondisplaced fracture of lateral malleolus of left fibula, initial encounter S82.65XA Encounter type: initial encounter Fracture alignment: nondisplaced Fracture type: closed
== END 2023-08-02 14:31 | disposition home or self-care (01) ==
PROVIDERS: Visit Provider Physician Assistant
DX: S82.65XA Nondisplaced fracture of lateral malleolus of left fibula, initial encounter for closed fracture (principal)
CPT/HCPCS: 99213

== ENCOUNTER 2023-08-02 14:57 | Outpatient (REF) | payer OTHER, SELFPAY ==
--- NOTE | ~2023-08-02 | XR_ITS ---
EXAMINATION: XR ANKLE, LEFT CLINICAL INFORMATION: Pain in unspecified ankle. COMPARISON: 07/05/2023, 06/02/2023. TECHNIQUE: AP, lateral, and mortise views of the left ankle. FINDINGS: Redemonstration of nondisplaced fracture of the lateral malleolus with evidence of osseous bridging. Alignment is anatomic. Ankle mortise is maintained. XR/XR ankle LT min 3V IMPRESSION: Healing nondisplaced fracture of the lateral malleolus.
== END 2023-08-02 14:58 | disposition home or self-care (01) ==
LOC: HO.HOSX 14:57
PROVIDERS: Visit Provider Physician Assistant
DX: S82.65XD Nondisplaced fracture of lateral malleolus of left fibula, subsequent encounter for closed fracture with routine healing (principal)
CPT/HCPCS: 73610